=== PATIENT | female | born 1980 | race African-American/Black ===

== ENCOUNTER 2017-08-06 02:05 | Emergency (ER) | payer SELFPAY ==
[2017-08-06] MEDS ORDERED: SODIUM CHLORIDE 0.9% 1000ML 1,000 ML IV ONE (02:06)
[2017-08-06] MEDS ORDERED: SODIUM CHLORIDE 0.9% FLUSH 10 ML SOL IV PRN (02:20)
[2017-08-06 02:41] VITALS: RESP 16; TEMP 98; O2SAT 100
[2017-08-06 02:48] LABS: BASOPHILS % (AUTO) 2 % (0-3); EOSINOPHILS % (AUTO) 1 % (0-9); HEMATOCRIT 37 % (35-47); HEMOGLOBIN 12.1 gm/dl (12.0-15.5); LYMPHOCYTES % (AUTO) 32.8 % (10-50); MEAN CORPUSCULAR HEMOGLOBIN 27.2 pg (27.0-32.0); MEAN CORPUSCULAR VOLUME 82 fL (81-99); MONOCYTES % (AUTO) 6.3 % (0-12); NEUTROPHILS % (AUTO) 58.1 % (37-80)
[2017-08-06 03:21] VITALS: BP 164/102; PULSE 72
[2017-08-06 03:39] LABS: ABO O; ANTIBODY SCREEN Negative; RH TYPE Positive
== END 2017-08-06 03:41 | disposition home or self-care (01) | DRG 779 ==
LOC: ED 02:05
DX: O03.9 Complete or unspecified spontaneous abortion without complication (principal); Z3A.08 8 weeks gestation of pregnancy
CPT/HCPCS: 85025; 86850; 86900; 86901; 99284

== ENCOUNTER 2018-04-16 12:33 | Inpatient (IN) | payer BC ==
[2018-04-16 12:28] LABS: HEMOGLOBIN 12.8 gm/dl (12.0-15.5); MEAN CORPUSCULAR HEMOGLOBIN 26.2 pg (27.0-32.0)
[2018-04-16] MEDS ORDERED: SODIUM CHLORIDE 0.9% 1000ML 1,000 ML IV SCH (13:00)
[2018-04-16] MEDS: SODIUM CHLORIDE 0.9% 1000ML 1,000 ML IV SCH ×2 (13:15→22:33)
[2018-04-16] MEDS: SODIUM CHLORIDE 0.9% FLUSH 10 ML SOL IV SCH ×3 (13:15→22:33)
[2018-04-16] MEDS: MISOPROSTOL 100 MCG TAB VAG PRN ×2 (13:17→19:43)
[2018-04-16 13:23] LABS: ALBUMIN 3.2 gm/dl (3.4-5.0); BILIRUBIN,TOTAL 0.3 mg/dl (0.2-1.0); CALCIUM 9.1 mg/dl (8.5-10.1); CARBON DIOXIDE 25.7 mEq/L (21-32); CREATININE 0.59 mg/dl (0.60-1.00); TOTAL PROTEIN 7.9 gm/dl (6.4-8.2)
[2018-04-16 14:03] LABS: ABO O; ANTIBODY SCREEN Negative; RH TYPE Positive; UNIT TYPE O POSITIVE
[2018-04-16 14:04] LABS: UNIT TYPE O POSITIVE
[2018-04-17 01:16] LABS: BASOPHILS % (AUTO) 0 % (0-3); EOSINOPHILS % (AUTO) 0 % (0-9); HEMATOCRIT 28 % (35-47); HEMOGLOBIN 9.2 gm/dl (12.0-15.5); LYMPHOCYTES % (AUTO) 13.7 % (10-50); MEAN CORPUSCULAR HEMOGLOBIN 27.1 pg (27.0-32.0); MEAN CORPUSCULAR HGB CONC 32.5 gm/dl (32.0-36.0); MEAN CORPUSCULAR VOLUME 83 fL (81-99); MONOCYTES % (AUTO) 4.9 % (0-12); NEUTROPHILS % (AUTO) 80.9 % (37-80)
[2018-04-17 01:42] VITALS: O2SAT 100
[2018-04-17] MEDS: SODIUM CHLORIDE 0.9% 1000ML 1,000 ML IV SCH ×2 (01:47→08:47)
[2018-04-17] MEDS ORDERED: PROPOFOL 500 MG/50 ML EMU IV ONE (07:05)
[2018-04-17] MEDS ORDERED: FENTANYL 100MCG/2ML SOL ONE (07:05)
[2018-04-17] MEDS ORDERED: LIDOCAINE HCL 1% MPF 30 SOL ONE (07:05)
[2018-04-17] MEDS ORDERED: PHENYLEPHRINE HYDROCHLORIDE 10 MG/ML SOL ONE (07:06)
[2018-04-17] MEDS ORDERED: EPHEDRINE SULFATE 50 MG/ML SOL ONE (07:06)
[2018-04-17] MEDS ORDERED: SUCCINYLCHOLINE CHLORIDE 20 MG/ML SOL IV ONE (07:08)
[2018-04-17 07:20] LABS: BASOPHILS % (AUTO) 0 % (0-3); EOSINOPHILS % (AUTO) 0 % (0-9); HEMATOCRIT 26 % (35-47); HEMOGLOBIN 8.7 gm/dl (12.0-15.5); LYMPHOCYTES % (AUTO) 9.9 % (10-50); MEAN CORPUSCULAR HEMOGLOBIN 27.5 pg (27.0-32.0); MEAN CORPUSCULAR HGB CONC 33.2 gm/dl (32.0-36.0); MEAN CORPUSCULAR VOLUME 83 fL (81-99); MONOCYTES % (AUTO) 3.3 % (0-12); NEUTROPHILS % (AUTO) 86.5 % (37-80)
[2018-04-17] MEDS ORDERED: LACTATED RINGERS 1,000 ML with OXYTOCIN 10000 MU/ML 20 MU IV ONE (07:59)
[2018-04-17] MEDS ORDERED: OXYTOCIN 10000 MU/ML SOL ONE (08:06)
[2018-04-17] MEDS ORDERED: LACTATED RINGERS 1,000 ML IV SCH (09:30)
[2018-04-17 12:05] LABS: BASOPHILS % (AUTO) 0 % (0-3); EOSINOPHILS % (AUTO) 0 % (0-9); HEMATOCRIT 24 % (35-47); HEMOGLOBIN 7.8 gm/dl (12.0-15.5); MEAN CORPUSCULAR HEMOGLOBIN 26.8 pg (27.0-32.0); MEAN CORPUSCULAR VOLUME 84 fL (81-99); MONOCYTES % (AUTO) 3.7 % (0-12); NEUTROPHILS % (AUTO) 79.6 % (37-80)
[2018-04-17 17:37] VITALS: BP 129/82; PULSE 103; RESP 18; TEMP 98
== END 2018-04-17 18:10 | disposition home or self-care (01) | DRG 544 ==
LOC: OB 12:36
PROVIDERS: ADMIT Family Medicine; ATTEND Family Medicine
PROC: 10D17ZZ Extraction of Products of Conception, Retained, Via Natural or Artificial Opening (ICD-10-PCS; principal; 2018-04-17 07:23)
DX: O03.9 Complete or unspecified spontaneous abortion without complication (principal); Z3A.14 14 weeks gestation of pregnancy
CPT/HCPCS: 36415; 80053; 85018; 85025; 85027; 86850; 86900; 86901; 86920; 99001; J0330; J2590; J3010; A9270-GY; J2001; J2370; J2704; J3490